=== PATIENT | female | born 1960 | race African-American/Black ===

== ENCOUNTER → 2017-05-16 | Outpatient (CLI) | payer BC, OTHER ==
--- NOTE | 2017-05-16 21:46 | RAD ---
Left shoulder arthrogram Indication: Evaluate for labral tear. Technique: After the procedure was explained to the patient including risks, benefits and alternative s to procedure and all questions were answered the patient gave written informed consent. Patient was then placed on the fluoroscopic table in supine position. The left shoulder was cleaned and draped i n usual sterile fashion. At this time a under fluoroscopic guidance local 1% lidocaine was injected t hrough a 25 gauge needle into the subcutaneous and deeper soft tissues of the left arm in expected co urse of the arthrogram needle placement. Under fluoroscopic guidance a 22 gauge spinal needle was adv anced into the left shoulder joint. Confirmation of intra-articular position was performed using real -time fluoroscopic imaging . A total of 16 cc of combination of on Omnipaque 240 and saline was injec edith into left shoulder joint. The needle was subsequently removed . There were no immediate or postpr ocedural complications identified . Total fluoroscopic time was 1.17 min . Impression: Successful fluoroscopic guided left shoulder arthrogram without immediate complication. Reported By:
--- NOTE | 2017-05-17 08:02 | MRI ---
MRI left shoulder without IV contrast Indication: Shoulder pain and stiffness with decreased range of motion. Technique: Multiplanar, multi sequence imaging of the left shoulder without IV contrast administratio n. Please refer to separate radiograph report describing arthrogram procedure. Findings: There is approximate 50-75% thickness bursal surface tear of the anterior-most fibers of th e supraspinatus tendon seen on coronal image 8, series 701. There is mild tendinopathy of the mid and posterior fibers of the distal supraspinatus tendon. The infraspinatus tendon is intact. Neither sup raspinatus or infraspinatus tendons demonstrate muscle belly atrophy. Subscapularis tendon is normal. Small amount of subacromial, subdeltoid bursal fluid is noted likely representing a bursitis. The intra-articular long head biceps tendon is normal in signal and position. The superior labrum demonstrates increased signal seen on image 7, series 801 consistent with degener ative fraying/tear. There is severe blunting of the anterior labrum with enlargement of the medial hu meral ligament seen best on image 14, series 601 most is with a Dale complex. The anterior inferior and posterior inferior labrum demonstrate no abnormal signal or insinuation of contrast to suggest t ear. The glenohumeral articular cartilage is maintained. AC joint demonstrates mild degenerative soriano ge, there is no evidence of mass effect on the rotator cuff. The distal acromion is type 2. The infer ior glenohumeral ligament is normal. Impression: 1.Intermediate increased signal within the superior labrum suspicious for a degenerative tear/fraying of the superior labrum. No acute labral tear identified. Specifically the anterior labrum and middle glenohumeral ligament have imaging findings consistent with a Dale complex. 2. A 50-75% thickness focal bursal surface tear within the anterior-most fibers of the supraspinatus tendon. No full thickness tear or muscle belly atrophy. 3. Normal appearance of the infraspinatus, subscapularis and biceps tendons. 4. Small amount of fluid within the subacromial, subdeltoid bursa likely represents bursitis, clinica l correlation is needed. 5. Mild AC and no significant glenohumeral osteoarthrosis. Reported By:
== END | disposition home or self-care (01) | DRG 563 ==
LOC: RAD 09:32
PROVIDERS: ATTEND Specialist
PROC: BP39YZZ Magnetic Resonance Imaging (MRI) of Left Shoulder using Other Contrast (ICD-10-PCS; principal; 2017-05-16)
DX: S43.432S Superior glenoid labrum lesion of left shoulder, sequela (principal); X58.XXXS Exposure to other specified factors, sequela
CPT/HCPCS: 23350; 73040; 73222